=== PATIENT | male | born 1950 | race Two or more races ===

== ENCOUNTER 2021-09-27 12:28 | Inpatient (IN) | payer OTHER ==
[2021-09-27] VITALS (10 sets, daily range): BP systolic 110–147; BP diastolic 74–90
[~2021-09-27] VITALS: Ht 175.3 cm; Wt 102.6 kg
[2021-09-27] MEDS ORDERED: fentaNYL CITRATE 100 MCG/2 ML VL ONE (12:35)
[2021-09-27] MEDS ORDERED: MIDAZOLAM HCL 2MG/2ML 2ml VIAL (1mg/ml) ONE (12:35)
[2021-09-27] MEDS ORDERED: ANGIOMAX 250 MG VIAL IV ONE (12:35)
[2021-09-27] MEDS ORDERED: LIDOCAINE 2%HCL (LOCAL ANESTH.) INJ 10ml MDV ONE (12:36)
[2021-09-27] MEDS ORDERED: SODIUM CHL 0.9% 50 ML ONE (12:36)
[2021-09-27] MEDS ORDERED: IODIXANOL 320MG/ML 100ML BTL IV ONE (12:36)
[2021-09-27] MEDS ORDERED: HEPARIN 1,000 UNITS/ml 1ML VIAL IV ONE (12:45)
[2021-09-27 13:18] LABS: Basophils # (auto) 0.1 10 ^3/uL (0-0.2); Basophils % (auto) 1.1 % (0.0-2.0); Eosinophils # (auto) 0.1 10 ^3/uL (0-0.8); Eosinophils % (auto) 1.2 % (0.0-7.0); Hematocrit 47.4 % (41.0-53.0); Hemoglobin 15.9 g/dL (13.5-17.5); Lymphocytes # (auto) 1.8 10 ^3/uL (0.4-5.4); Lymphocytes % (auto) 21.8 % (10.0-50.0); Mean Corpuscular Hemoglobin 29.9 pg (28.0-32.0); Mean Corpuscular Hgb Conc. 33.6 g/dL (32.0-36.0); Monocytes # (auto) 0.6 10 ^3/uL (0-1.3); Monocytes % (auto) 7.3 % (0.0-12.0); Neutrophils # (auto) 5.7 10 ^3/uL (1.6-8.6); Neutrophils % (auto) 68.6 % (37.0-80.0); Nucleated Red Blood Cells % 0.1 %; Red Blood Cells 5.33 10^6/uL (4.5-5.90); Red Cell Distribution Width 13.5 % (11.8-14.3); White Blood Cell 8.3 10^3/uL (4.4-10.8)
[2021-09-27] MEDS ORDERED: niCARdipine 25 MG/10 ML VIAL IV ONE (13:20)
[2021-09-27 13:22] LABS: Albumin 3.8 g/dL (3.4-5.0); BUN/Creatinine Ratio 12.5; Calcium 9.1 mg/dL (8.5-10.1); Magnesium 2.3 mg/dL (1.6-2.6); Potassium 4.2 mmol/L (3.5-5.1)
[2021-09-27] MEDS ORDERED: EPTIFIBATIDE INJ (2MG/ML) 10ML VIAL IV ONE (13:22)
[2021-09-27 13:24] LABS: Bilirubin, Total 0.5 mg/dL (0.2-1.0); Total Protein 7.5 g/dL (6.4-8.2)
[2021-09-27] MEDS ORDERED: ATROPINE SULF 1 MG/10ml SYR ONE (13:26)
[2021-09-27] MEDS ORDERED: TICAGRELOR 90 MG TAB ONE (13:42)
[2021-09-27] MEDS ORDERED: MORPHINE SULFATE INJ 2 MG/ml SYRG IV PRN (14:00)
[2021-09-27] MEDS ORDERED: NITROGLYCERIN 0.4 MG SL TAB SL PRN (14:00)
[2021-09-27] MEDS ORDERED: SIMV-13 PO (18:28)
[2021-09-27] MEDS ORDERED: ATEN50TA PO (18:28)
[2021-09-27] MEDS ORDERED: ASPI-498 OR (18:28)
[2021-09-27] MEDS: METOPROLOL TARTRATE 25 MG TAB PO SCH (21:13)
[2021-09-27] MEDS: TICAGRELOR 90 MG TAB PO SCH (21:13)
[2021-09-27] MEDS ORDERED: BUDE1AER4 IN (22:15)
[2021-09-27] MEDS ORDERED: FLUT0.05 NAS (22:15)
[2021-09-27] MEDS ORDERED: TIOT17SP IN (22:15)
[2021-09-28 05:00] VITALS: BP 112/61
[2021-09-28 06:12] LABS: Basophils # (auto) 0 10 ^3/uL (0-0.2); Basophils % (auto) 0.5 % (0.0-2.0); Eosinophils # (auto) 0.2 10 ^3/uL (0-0.8); Eosinophils % (auto) 1.9 % (0.0-7.0); Hematocrit 44.3 % (41.0-53.0); Lymphocytes # (auto) 1.7 10 ^3/uL (0.4-5.4); Lymphocytes % (auto) 20.2 % (10.0-50.0); Mean Corpuscular Hemoglobin 30.1 pg (28.0-32.0); Mean Corpuscular Hgb Conc. 33.9 g/dL (32.0-36.0); Mean Corpuscular Volume 88.6 fL (80.0-100.0); Monocytes # (auto) 0.7 10 ^3/uL (0-1.3); Monocytes % (auto) 8.4 % (0.0-12.0); Neutrophils # (auto) 5.9 10 ^3/uL (1.6-8.6); Nucleated Red Blood Cells % 0.1 %; Red Cell Distribution Width 13.4 % (11.8-14.3); White Blood Cell 8.6 10^3/uL (4.4-10.8)
[2021-09-28 06:31] LABS: Albumin 3.2 g/dL (3.4-5.0); Calcium 8.7 mg/dL (8.5-10.1); Potassium 4.1 mmol/L (3.5-5.1)
[2021-09-28 06:35] LABS: BUN/Creatinine Ratio 12.6; Bilirubin, Total 0.6 mg/dL (0.2-1.0); Total Protein 6.8 g/dL (6.4-8.2)
[2021-09-28 09:00] VITALS: BP 104/65
[2021-09-28] MEDS: TICAGRELOR 90 MG TAB PO SCH (09:44)
[2021-09-28] MEDS: METOPROLOL TARTRATE 25 MG TAB PO SCH (09:45)
[2021-09-28] MEDS ORDERED: ATORVASTATIN 20 MG TAB PO SCH (10:00)
[2021-09-28] MEDS ORDERED: ASPirin 81 mg TAB PO SCH (10:00)
[2021-09-28] MEDS ORDERED: CLOPIDOGREL 300 MG TAB PO ONE ×2 (11:45→12:15)
== END 2021-09-28 15:36 | disposition home or self-care (01) | DRG 246 ==
LOC: ER 12:28 → EDUNIT# 12:28 → EDBD 12:28 → TELE 13:59 → TELE-WESTW 17:42
PROVIDERS: ADMIT Specialist; ATTEND Specialist
PROC: 027034Z Dilation of Coronary Artery, One Artery with Drug-eluting Intraluminal Device, Percutaneous Approach (ICD-10-PCS; principal; 2021-09-27)
PROC: 02C03ZZ Extirpation of Matter from Coronary Artery, One Artery, Percutaneous Approach (ICD-10-PCS; 2021-09-27)
PROC: 4A023N7 Measurement of Cardiac Sampling and Pressure, Left Heart, Percutaneous Approach (ICD-10-PCS; 2021-09-27)
PROC: B211YZZ Fluoroscopy of Multiple Coronary Arteries using Other Contrast (ICD-10-PCS; 2021-09-27)
PROC: B215YZZ Fluoroscopy of Left Heart using Other Contrast (ICD-10-PCS; 2021-09-27)
PROC: B240ZZ3 Ultrasonography of Single Coronary Artery, Intravascular (ICD-10-PCS; 2021-09-27)
PROC: B41CYZZ Fluoroscopy of Pelvic Arteries using Other Contrast (ICD-10-PCS; 2021-09-27)
PROC: 02703ZZ Dilation of Coronary Artery, One Artery, Percutaneous Approach (ICD-10-PCS; 2021-09-27)
DX: I21.19 ST elevation (STEMI) myocardial infarction involving other coronary artery of inferior wall (principal); I50.33 Acute on chronic diastolic (congestive) heart failure; E78.5 Hyperlipidemia, unspecified; Z79.899 Other long term (current) drug therapy; Z83.3 Family history of diabetes mellitus; Z20.822 Contact with and (suspected) exposure to COVID-19; I11.0 Hypertensive heart disease with heart failure
CPT/HCPCS: 36415; 71045; 75736; 80053; 83735; 84484; 85025; 86850; 86900; 86901; 92933; 92978; 93005; 93306; 93458; 99152; 99153; 99291; C1874; G0378; J2001; J2250; Q9967